=== PATIENT | female | born 1950 | race Caucasian/White ===

== ENCOUNTER → 2017-11-25 | Outpatient (CLI) | payer OTHER ==
[2017-11-25 10:40] VITALS: BP 122/70
[2017-11-25 12:25] VITALS: BP 134/70
--- NOTE | 2017-11-25 12:51 | NUR ---
ARRIVED AMBULATORY. MADE SELF COMFORTABLE IN RECLINER. AT CHAIRSIDE. DENIES ADVERSE REACTION TO PRIOR INFUSIONS OF SAME. AT 1105 COMPLAINT OF DISCOMFORT AT IV SITE. IV PATENT SO RATE OF INFUSION DROPPED FROM 100 TO 50. TOLERATED INFUSION WELL WITH NO COMPLAINT AFTER RATED DROP. DISCHARGE REVIEWED. DENIES QUESTIONS OR NEEDS AT DISCHARGE.
== END ==
LOC: M.INFUS 11-24 11:15
DX: D64.9 Anemia, unspecified (principal); E11.40 Type 2 diabetes mellitus with diabetic neuropathy, unspecified; I48.0 Paroxysmal atrial fibrillation; I10 Essential (primary) hypertension; K21.9 Gastro-esophageal reflux disease without esophagitis

== ENCOUNTER → 2017-11-27 | Outpatient (CLI) | payer OTHER ==
[2017-11-27 14:20] VITALS: BP 132/74
[2017-11-27 15:20] VITALS: BP 128/80
--- NOTE | 2017-11-27 15:45 | NUR ---
ARRIVED AMBULATORY. MADE SELF COMFORTABLE IN RECLINER. DENEIS ADVERSE REACTION TO PRIOR INFUSION OF SAME. DIFFICULT IV STICK. INFUSION COMPLETED AND TOLERATED WELL. DENIES NEEDS AT DISCHARGE.
== END ==
LOC: M.INFUS 01:24
DX: D64.9 Anemia, unspecified (principal); I10 Essential (primary) hypertension; E11.40 Type 2 diabetes mellitus with diabetic neuropathy, unspecified; I48.0 Paroxysmal atrial fibrillation; K21.9 Gastro-esophageal reflux disease without esophagitis; Z79.4 Long term (current) use of insulin

== ENCOUNTER → 2017-12-01 | Outpatient (CLI) | payer OTHER ==
[2017-12-01 13:35] VITALS: BP 125/72
--- NOTE | 2017-12-01 15:20 | NUR ---
INFUSION COMPLETED AND TOLERATED WELL.
== END ==
LOC: M.INFUS 06:38
DX: D64.9 Anemia, unspecified (principal); I10 Essential (primary) hypertension; E11.40 Type 2 diabetes mellitus with diabetic neuropathy, unspecified; K21.9 Gastro-esophageal reflux disease without esophagitis; I48.0 Paroxysmal atrial fibrillation; Z79.4 Long term (current) use of insulin